=== PATIENT | male | born 2000 | race Caucasian/White ===

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

== ENCOUNTER 2021-03-15 12:09 | Emergency (ER) | payer OTHER, SELFPAY ==
[2021-03-15] VITALS (19 sets, daily range): BP systolic 97–135; BP diastolic 53–93; PULSE 59–79; RESP 8–22; TEMP 36.7; O2SAT 96–100
--- NOTE | 2021-03-15 12:30 | DI.CT_ITS ---
Exam(s) CT CERVICAL SPINE WO EXAM: CT CERVICAL SPINE WO CLINICAL HISTORY: trauma. TECHNIQUE: CT Examination of the cervical spine was performed utilizing multislice acquisition and m ultiplanar reconstruction. COMPARISON: No exams were available for comparison FINDINGS: The visualized lung apices are clear. The tracholaryngeal structures appear intact. No cervical mass or adenopathy seen. Intervertebral disc spaces are well maintained. No gross cervical disc herniation by CT criteria. Facet joints are normal. No bony abnormality seen. IMPRESSION: Normal cervical spine CT RADIATION DOSE DELIVERED: 770.79mGy.cm Total DLP 770.79mGy.cm Total DLP 29.3mGy CTDIvol DATA REPOSITORY: All CT scans at this facility are submitted to the National Radiology Data Registry (NRDR) Dose Index Registry (DIR) with the [employer] (ACR). RADIATION OPTIMIZATION: All CT scans at this facility use at least one of these dose optimization te chniques: automated exposure control; mA and/or kV adjustment per patient size (includes targeted exa ms where dose is matched to clinical indication); or iterative reconstruction.
--- NOTE | 2021-03-15 12:50 | ED.GENADUL_ITS ---
Discharge Plan Disposition Patient Disposition: HOME Condition: Stable Discharge Details Clinical Impression: Rib pain on right side, Fall from ladder Primary Care Provider: Tommy Quintanilla ED Provider: Venus Boyer Home Meds and New Rx's Prescriptions: No Action No Known Home Meds RF: 0 Discharge Instructions Instructions: Contusion in Adults (ED), Chest Wall Pain (ED), Rib Contusion (ED) Additional Instructions: Please return immediately to the emergency department if you develop any new or worsening symptoms, if your condition does not improve as expected, or if you become otherwise concerned. It is extremely important that you call soon as possible to make an appointment to be seen in follow-up for this visit by your primary care doctor. Referrals: Tommy Quintanilla DO [Primary Care Provider] - Discharge Data Discharge Date/Time-TO BE ENTERED AT DEPARTURE: 03/15/21 14:56 Medical Decision Making Evens Lewis is a 21-year-old man with history of attention deficit disorder who presented to the emergency department with right shoulder pain, right lateral rib pain, right abdominal pain after 10 foot fall from ladder. Did not hit his head. On exam patient is well and nontoxic-appearing although appears somewhat uncomfortable. There is tenderness palpation of the right lateral chest and right lateral abdomen, there are no skin signs of trauma any.. Right shoulder is nontender to palpation. Full range of motion bilateral upper and lower extremities. Mild tenderness to palpation of the thoracic and lumbar spine. Given mechanism of injury, concern for major trauma to the thorax, abdomen, spine. At this time there does not appear to be significant extremity trauma. Exam/history not consistent with acute emergent intracranial trauma. Plan for IV placement, telemetry, screening labs, CT cervical spine, CT chest abdomen/pelvis, CT thoracic/lumbar spine. Will monitor and reassess. Labs reviewed, hemoglobin 15. Imaging resulted as normal per radiology, patient reassessed. He reports that he has developed worsening right lateral rib pain, reports that right shoulder pain has resolved completely. Right shoulder NTTP, FROM. He denies any other pain at this time other than right lateral rib pain. C-collar cleared clinically. Okay for discharge home. I had a lengthy discussion with Patient regarding return to emergency department precautions, home care, and importance of outpatient follow-up. Pt verbalizes understanding of the plan and is amenable. Patient discharged to home with clear plan for outpatient follow-up. All questions were answered. Disposition decision was made weighing the risks and benefits of hospitalization versus outpatient treatment, the risk for further decompensation, and the patient's wishes. Medical Records Medical records reviewed: Yes I reviewed the patient's medical records. Imaging Data Radiologic Study: Attestation: I personally reviewed and interpreted this imaging study as follows: Radiologist's impression: EXAM: CT CERVICAL SPINE WO CLINICAL HISTORY: trauma. TECHNIQUE: CT Examination of the cervical spine was performed utilizing multislice acquisition and multiplanar reconstruction. COMPARISON: No exams were available for comparison FINDINGS: The visualized lung apices are clear. The tracholaryngeal structures appear intact. No cervical mass or adenopathy seen. Intervertebral disc spaces are well maintained. No gross cervical disc herniation by CT criteria. Facet joints are normal. No bony abnormality seen. IMPRESSION: Normal cervical spine CT EXAM: CT CHEST/ABD/PEL W TECHNIQUE: CT examination of the chest, abdomen, and pelvis was performed with bolus infusion of 100 cc of Omnipaque 350. COMPARISON: CT CT ABDOMEN PELVIS W from 03/03/2020 FINDINGS: There is no evidence of a thoracic vascular injury. The lungs are clear. No pneumothorax or pleural effusion. No mediastinal hematoma. No adenopathy in the chest. Tracheobronchial tree appears intact. The liver, spleen, and pancreas appear normal. Gallbladder and bile ducts are normal. Adrenals and kidneys are unremarkable. No evidence of urinary tract injury or obstruction. No abdominal or pelvic vascular injury seen. No abdominal or pelvic adenopathy. No significant abdominal wall hernia or hematoma. No evidence of bowel injury. No fracture identified in the region surveyed. Additional CT reconstructions of the thoracic and lumbar spine were also performed, no evidence of a fracture of the thoracic or lumbar spine. IMPRESSION: No evidence of acute injury of the chest, abdomen, or pelvis. EXAM: CT CHEST/ABD/PEL W TECHNIQUE: CT examination of the chest, abdomen, and pelvis was performed with bolus infusion of 100 cc of Omnipaque 350. COMPARISON: CT CT ABDOMEN PELVIS W from 03/03/2020 FINDINGS: There is no evidence of a thoracic vascular injury. The lungs are clear. No pneumothorax or pleural effusion. No mediastinal hematoma. No adenopathy in the chest. Tracheobronchial tree appears intact. The liver, spleen, and pancreas appear normal. Gallbladder and bile ducts are normal. Adrenals and kidneys are unremarkable. No evidence of urinary tract injury or obstruction. No abdominal or pelvic vascular injury seen. No abdominal or pelvic adenopathy. No significant abdominal wall hernia or hematoma. No evidence of bowel injury. No fracture identified in the region surveyed. Additional CT reconstructions of the thoracic and lumbar spine were also p erformed, no evidence of a fracture of the thoracic or lumbar spine. IMPRESSION: No evidence of acute injury of the chest, abdomen, or pelvis. Lab Data Lab results reviewed: Yes I reviewed the patient's lab results. Labs: Laboratory Tests Range/Units 03/15/21 03/15/21 03/15/21 12:56 12:56 13:49 WBC (4.4-10.8) 10^3/uL 10.87 H RBC (4.36-5.78) 10^6/uL 5.38 Hgb (13.5-17.5) g/dL 15.0 Hct (40.0-50.0) % 44.5 MCV (80-95) fL 82.7 MCH (27.0-33.0) pg 27.9 MCHC (32.0-36.0) % 33.7 RDW (11.8-14.1) % 12.0 Plt Count (130-400) 10^3/uL 294 MPV (8.0-11.0) fL 9.0 Immature Gran % 0.3 Neutrophils % 80.4 Lymphocytes % 12.8 Monocytes % 4.4 Eosinophils % 1.6 Basophils % 0.5 Nucleated RBC % % 0 Absolute Neutrophils (1.2-6.7) 10^3/uL 8.74 H Absolute Lymphocytes (1.2-3.4) 10^3/uL 1.39 Absolute Monocytes (0.1-0.8) 10^3/uL 0.48 Absolute Eosinophils (0.0-0.7) 10^3/uL 0.17 Absolute Basophils (0.0-0.2) 10^3/uL 0.05 PT (9.3-11.0) sec 10.4 INR (0.9-1.1) 1.0 Sodium (136-145) mmol/L 138 Potassium (3.5-5.1) mmol/L 4.0 Chloride (98-107) mmol/L 102 Carbon Dioxide (21.0-32.0) mmol/L 29.5 Anion Gap (3-11) mmol/L 6.5 BUN (7-18) mg/dL 17 Creatinine (0.70-1.30) mg/dL 1.1 Estimated GFR/1.73 m2 (mL/min/1.73m2) >= 60.00 Glucose (74-106) mg/dL 95 Calcium (8.5-10.1) mg/dL 9.4 Total Bilirubin (0.2-1.0) mg/dL 0.6 AST (15-37) U/L 17 ALT (16-63) U/L 48 Alkaline Phosphatase (46-116) U/L 71 Total Protein (6.4-8.2) g/dL 8.0 Albumin (3.4-5.0) g/dL 4.8 Patient ABO/Rh Antibody Screen Range/Units 03/15/21 13:49 WBC (4.4-10.8) 10^3/uL RBC (4.36-5.78) 10^6/uL Hgb (13.5-17.5) g/dL Hct (40.0-50.0) % MCV (80-95) fL MCH (27.0-33.0) pg MCHC (32.0-36.0) % RDW (11.8-14.1) % Plt Count (130-400) 10^3/uL MPV (8.0-11.0) fL Immature Gran % Neutrophils % Lymphocytes % Monocytes % Eosinophils % Basophils % Nucleated RBC % % Absolute Neutrophils (1.2-6.7) 10^3/uL Absolute Lymphocytes (1.2-3.4) 10^3/uL Absolute Monocytes (0.1-0.8) 10^3/uL Absolute Eosinophils (0.0-0.7) 10^3/uL Absolute Basophils (0.0-0.2) 10^3/uL PT (9.3-11.0) sec INR (0.9-1.1) Sodium (136-145) mmol/L Potassium (3.5-5.1) mmol/L Chloride (98-107) mmol/L Carbon Dioxide (21.0-32.0) mmol/L Anion Gap (3-11) mmol/L BUN (7-18) mg/dL Creatinine (0.70-1.30) mg/dL Estimated GFR/1.73 m2 (mL/min/1.73m2) Glucose (74-106) mg/dL Calcium (8.5-10.1) mg/dL Total Bilirubin (0.2-1.0) mg/dL AST (15-37) U/L ALT (16-63) U/L Alkaline Phosphatase (46-116) U/L Total Protein (6.4-8.2) g/dL Albumin (3.4-5.0) g/dL Patient ABO/Rh AB Negative Antibody Screen NEGATIVE HPI General Mode of arrival: ambulatory . Date/Time Provider Initiated Documentation: 03/15/21 12:37 . Limitations to Documentation: no limitations . Information obtained by: patient, RN notes reviewed and old records reviewed . HPI Narrative: Evens Lewis is a 21-year-old man with a history of attention deficit disorder presenting to emergency department with right-sided trunk pain after fall from ladder. Patient reports that just prior to arrival he was approximately 10 feet up on a ladder when the ladder began to fall to the side. Patient was able to brace himself against the wall behind him and slid down the wall against his back for some distance but then fell quite hard on the floor landing on his right side. Patient reports that he did not hit his head, remembers the entire incident, no vomiting or loss of consciousness. Patient reporting pain in his right lateral chest near his armpit. Was walking after the fall though did have pain in the right side of his trunk. He reports some right shoulder pain, denies any other extremity pain. Does not take blood thinners. Related Data Home Medications Medication Instructions Recorded Confirmed Unknown [No Known Home Meds] 03/15/21 03/15/21 Allergies Allergy/AdvReac Type Severity Reaction Status Date / Time soy Allergy Intermediate itching, Verified 03/15/21 12:30 skin rash dairy Allergy Intermediate Itching, Uncoded 03/15/21 12:30 skin rash General Stated Complaint: Trauma PREMA: 2 Review of Systems Narrative: Constitutional: denies fevers Eyes: denies eye pain ENT: denies ear pain, dental pain, sore throat Cardiovascular: reports right lateral chest pain Respiratory: denies SOB, cough GI: denies vomiting, diarrhea, reports right lateral abdominal pain : denies flank pain MSK: reports right shoulder pain, denies back pain, neck pain, other arthralgias Skin: denies rash Neuro: denies headaches, numbness, weakness PFSH Medical History ADD (attention deficit disorder) Anxiety anxious most of the time with some vomting and fear of eating- wt loss will increase sertaline which he is on for depression 05/17/19 Asperger syndrome diagnosed in 2nd grade - socially awkward Concussion, unspecified (02/01/12) Shoulder pain SLAP lesion of right shoulder Wheezing hospitalized once brief time Surgical History Adenoidectomy Previous back surgery Repair of umbilical hernia Family History Mother Essential hypertension Hyperlipidemia Mental disorder depression/anxiety Father Essential hypertension Other Factor XI deficiency, type I MGM SIDS (sudden syndrome) mat uncle Alcohol abuse maternal Essential hypertension MGF Bipolar disorder materanal side Mental disorder anxiety/depression on paternal side and also with older brother Sister Mental disorder depression/anxiety Asthma Brother Anxiety Social History Smoking/Tobacco Use Status: Former Tobacco Use Quit Date: 06/05/18 Second Hand Exposure: No Smoking risk assessment performed?: Yes Alcohol Intake: current Alcohol Intake frequency: a few times a month Drug use: Never Substance use type: does not use Adopted: No Caregiver/Support person: No Foster care: No Household members: family Housing: house Number of Children: 0 Education Level: college Details: Freshman (Fall 2019) at [employer] Do you need help understanding health information?: Rarely Pets and animals: Yes Pets and animals: dog(s) Sexually active: Yes Do you think of yourself as: straight/heterosexual Current gender identity: male What type of physical activity do you participate in: regular exercise Duration: 45-60 minutes/day Frequency: 3-4 times per week Seatbelt use: always Helmet use: Yes Water heater temp set <120 deg: Yes Working smoke detector in home: Yes Fire extinguisher in home: Yes Carbon monox detector in home: Yes Do you feel safe at home: Yes Do you feel safe in your relationship?: Yes Additional Social history: Not all childhood immunizations are up to date Exam Narrative Exam Narrative: Constitutional: [id number], conversing normally HENT: head atraumatic/normocephalic/normal inspection, mucous membranes moist Eyes: conjunctiva normal, sclera normal, pupils 3mm b/l Neck: no stridor, trachea midline, c-collar in place Chest: normal inspection, TTP right lateral ribs, no crepitus Resp: normal work of breathing, speaking in full sentences Cardio: normal rate, normal rhythm GI: abdomen soft, non-tender, non-distended Back: normal inspection, no rash, diffuse mild TTP of lumbar and thoracic spine Skin: warm, dry, normal color, no rash Neuro: alert, not altered, grossly non-focal, normal tone Ext: no edema, ranging b/l UEs and LEs normally, no TTP right shoulder, radial pulses intact and symmetric Psych: normal mood, normal affect, normal behavior Course Vital Signs Vital signs: Vital Signs Temperature 36.7 C 03/15/21 12:27 Pulse 72 03/15/21 12:27 Respiratory Rate 18 03/15/21 12:27 Blood Pressure 135/71 03/15/21 12:27 Pulse Oximetry 98 03/15/21 12:27 Temperature 36.7 C 03/15/21 12:27 Pulse 72 03/15/21 12:27 Respiratory Rate 18 03/15/21 12:27 Respiratory Effort Non-Labored 03/15/21 12:43 Respiratory Depth Normal 03/15/21 12:43 Respiratory Pattern Normal 03/15/21 12:43 Blood Pressure 135/71 03/15/21 12:27 Pulse Oximetry 98 03/15/21 12:27 Oxygen Delivery Method Room Air 03/15/21 12:27 Oxygen Flow Rate 0 03/15/21 12:27
[2021-03-15] MEDS: Omnipaque 350 MG/ML 100 ML BTL IJ (13:17)
[2021-03-15] MEDS: Normal Saline - Diluent 50 ML VIAL IV (13:23)
[2021-03-15 13:30] LABS: ALT 48 U/L (16-63); AST 17 U/L (15-37); Albumin 4.8 g/dL (3.4-5.0); Alkaline Phosphatase 71 U/L (46-116); Anion Gap 6.5 mmol/L (3-11); BUN 17 mg/dL (7-18); Bilirubin, Total 0.6 mg/dL (0.2-1.0); CO2 29.5 mmol/L (21.0-32.0); CREATININE 1.1 mg/dL (0.70-1.30); Calcium 9.4 mg/dL (8.5-10.1); Chloride 102 mmol/L (98-107); Glucose 95 mg/dL (74-106); Sodium 138 mmol/L (136-145)
[2021-03-15 13:31] LABS: Prothrombin Time 10.4 sec (9.3-11.0)
--- NOTE | 2021-03-15 13:45 | DI.CT_ITS ---
Exam(s) CT CHEST/ABD/PEL W CT THORACIC LUMBAR SPINE REC EXAM: CT CHEST/ABD/PEL W TECHNIQUE: CT examination of the chest, abdomen, and pelvis was performed with bolus infusion of 100 cc of Omnipaque 350. COMPARISON: CT CT ABDOMEN PELVIS W from 03/03/2020 FINDINGS: There is no evidence of a thoracic vascular injury. The lungs are clear. No pneumothorax or pleural effusion. No mediastinal hematoma. No adenopathy in the chest. Tracheobronchial tree appears intact. The liver, spleen, and pancreas appear normal. Gallbladder and bile ducts are normal. Adrenals and kidneys are unremarkable. No evidence of urinary tract injury or obstruction. No abdominal or pelvic vascular injury seen. No abdominal or pelvic adenopathy. No significant abdomi nal wall hernia or hematoma. No evidence of bowel injury. No fracture identified in the region surveyed. Additional CT reconstructions of the thoracic and lumbar spine were also performed, no evidence of a fracture of the thoracic or lumbar spine. IMPRESSION: No evidence of acute injury of the chest, abdomen, or pelvis. RADIATION DOSE DELIVERED: Total DLP Total DLP Total DLP CTDIvol DATA REPOSITORY: All CT scans at this facility are submitted to the National Radiology Data Registry (NRDR) Dose Index Registry (DIR) with the [employer] (ACR). RADIATION OPTIMIZATION: All CT scans at this facility use at least one of these dose optimization te chniques: automated exposure control; mA and/or kV adjustment per patient size (includes targeted exa ms where dose is matched to clinical indication); or iterative reconstruction.
[2021-03-15 13:57] LABS: Abs Immature Grans 0.03 10^3/uL (0.0-0.06); Absolute Basophil Count 0.05 10^3/uL (0.0-0.2); Absolute Eosinophil Count 0.17 10^3/uL (0.0-0.7); Absolute Lymphocyte Count 1.39 10^3/uL (1.2-3.4); Absolute Monocyte Count 0.48 10^3/uL (0.1-0.8); Absolute Neutrophil Count 8.74 10^3/uL (1.2-6.7); Basophils % 0.5; Eosinophils % 1.6; HCT 44.5 % (40.0-50.0); Immature Grans % 0.3; Lymphocytes % 12.8; MCH 27.9 pg (27.0-33.0); MCHC 33.7 % (32.0-36.0); MCV 82.7 fL (80-95); Monocytes % 4.4; Neutrophils % 80.4; Nucleated RBC 0 %; Platelet Count 294 10^3/uL (130-400); RBC 5.38 10^6/uL (4.36-5.78); RDW-SD 35.9 fL; WBC 10.87 10^3/uL (4.4-10.8)
== END 2021-03-15 14:56 | disposition home or self-care (01) ==
PROVIDERS: Emergency Provider Student in an Organized Health Care Education/Training Program; PCP Family Medicine
DX: R07.81 Pleurodynia (principal); S39.82XA Other specified injuries of lower back, initial encounter; M25.511 Pain in right shoulder; R10.9 Unspecified abdominal pain; R07.89 Other chest pain; W11.XXXA Fall on and from ladder, initial encounter
CPT/HCPCS: 36415; 74177; 80053; 86850; 86900; 86901; 99285; 71260; 72125; 85025; 85610; 99284; J3490

== ENCOUNTER → 2022-01-19 12:54 | Outpatient (CLI) | payer OTHER, SELFPAY ==
--- NOTE | 2022-01-19 11:15 | DI.RAD_ITS ---
Exam(s) XR ANKLE RT COMPLETE EXAM: XR ANKLE RT COMPLETE CLINICAL HISTORY: ACTE PAIN IN ANKLE AND JOINTS--M25.579 TECHNIQUE: COMPARISON: No exams were available for comparison FINDINGS: Three views were obtained. The ankle mortise is well maintained. No bony or soft tissue abnormality seen. IMPRESSION: RADIATION DOSE DELIVERED: Total DLP
== END ==
PROVIDERS: PCP Family Medicine; Visit Provider Nurse Practitioner
DX: M25.571 Pain in right ankle and joints of right foot (principal)
CPT/HCPCS: 73610

== ENCOUNTER 2022-11-21 11:33 | Outpatient (CLI) | payer OTHER, SELFPAY ==
--- NOTE | 2022-11-21 11:15 | DI.RAD_ITS ---
Exam(s) XR KNEE LT 3V AP,LAT,CLARISA EXAM: XR KNEE LT 3V AP,LAT,CLARISA CLINICAL HISTORY: Inversion injuries, franchesca knee pain, M25.561, M25.562. TECHNIQUE: 2D digital imaging was performed. Three views. COMPARISON: No exams were available for comparison FINDINGS: BONES: No acute fracture is present. No bony destructive lesion is seen. JOINTS: The knee is normally aligned. No joint effusion is seen. SOFT TISSUE: Normal. IMPRESSION: Normal radiographs of the left knee. DATA REPOSITORY: RADIATION DOSE DELIVERED:
--- NOTE | 2022-11-21 11:15 | DI.RAD_ITS ---
Exam(s) XR KNEE RT 3V AP,LAT,CLARISA EXAM: XR KNEE RT 3V AP,LAT,CLARISA CLINICAL HISTORY: Inversion injury, franchesca knee pain, M25.561, M25.562. TECHNIQUE: 2D digital imaging was performed. Three views. COMPARISON: No exams were available for comparison FINDINGS: BONES: No acute fracture is present. No bony destructive lesion is seen. JOINTS: The knee is normally aligned. No joint effusion is seen. SOFT TISSUE: Normal. IMPRESSION: Unremarkable radiographs of the right knee. DATA REPOSITORY: RADIATION DOSE DELIVERED:
== END 2022-11-21 11:53 ==
LOC: DI 11:34
PROVIDERS: PCP Family Medicine; Visit Provider Family Medicine
DX: M25.561 Pain in right knee (principal); M25.562 Pain in left knee
CPT/HCPCS: 73562

== ENCOUNTER 2022-11-22 08:19 | Outpatient (CLI) | payer OTHER, SELFPAY ==
--- NOTE | 2022-11-22 08:13 | DI.RAD_ITS ---
Exam(s) XR KNEES MERCHANT ONLY EXAM: XR KNEES MERCHANT ONLY INDICATION: L KNEE PAIN. COMPARISON: No exams were available for comparison TECHNIQUE: 2D digital imaging was performed. One image was obtained. Merchant's view of both knees were performed. FINDINGS: There is normal alignment of the patella. The bones are normally mineralized. The soft tissues are unremarkable. IMPRESSION: This is a limited examination. No acute abnormality. DATA REPOSITORY: RADIATION DOSE DELIVERED:
== END 2022-11-22 08:20 | disposition home or self-care (01) ==
LOC: DIORS 08:20
PROVIDERS: PCP Family Medicine; Referring Provider Family Medicine; Visit Provider Physician Assistant
DX: M25.562 Pain in left knee (principal)
CPT/HCPCS: 73565

== ENCOUNTER 2022-12-12 00:37 | Outpatient (CLI) | payer OTHER, SELFPAY ==
--- NOTE | 2022-12-12 08:20 | DI.MRI_ITS ---
Exam(s) MR LOWER JOINT LT WO EXAM: MR LOWER JOINT LT WO CLINICAL HISTORY: L KNEE INJURY, ? MENISCUS tear, lt knee pain, m25.562 TECHNIQUE: Multiplanar multisequence MRI of the knee was performed. COMPARISON: CR XR KNEE RT 3V AP,LAT,CLARISA from 11/21/2022 CR XR KNEE LT 3V AP,LAT,CLARISA from 11/21/2022 CR XR KNEES MERCHANT ONLY from 11/22/2022 FINDINGS: EFFUSION: There is no evidence of prominent knee joint effusion. There is a tiny sub cm size Beatty c yst in the medial popliteal fossa. MARROW:There is no evidence of fracture, bone contusion, nor osteochondral defects.. There are no si gnificant osseous lesions. PATELLOFEMORAL COMPARTMENT: The quadriceps tendon is intact. The patellar ligament is intact. There is no significant thinning of the retropatellar cartilage. No evidence of fissure nor signific ant chondral defect. No osteochondral defect at this level.There is no intraosseous signal to sugges t recent patellar dislocation. There are no patellar retinacular tears. CRUCIATE LIGAMENTS: The anterior cruciate ligament is intact.The posterior cruciate ligament is intac t. MEDIAL COMPARTMENT/MEDIAL MENISCUS: There are no tears of the medial meniscus evident.. There are no chondral defects, osteochondral defects, subarticular marrow edema, nor osteophytes evid ent. MEDIAL COLLATERAL LIGAMENT: Intact LATERAL COMPARTMENT/LATERAL MENISCUS: There is no evidence of lateral meniscal tear.There are no víctor dral defects, osteochondral defects, subarticular marrow edema, nor osteophytes evident. ILIOTIBIAL BAND: Intact LATERAL COLLATERAL LIGAMENT COMPLEX: The fibular collateral ligament is intact. The biceps femoris t endon is intact.Popliteus muscle and tendon are intact. IMPRESSION: 1. No evidence of significant internal derangement in the left knee. There are no meniscal tears. N o cruciate ligament nor collateral ligament tears evident 2. No osteochondral defects nor prominent cartilage loss in the medial lateral compartments nor in th e retropatellar compartment. 3. No prominent joint effusion evident. DATA REPOSITORY:
== END 2022-12-12 00:57 ==
LOC: DI 00:38
PROVIDERS: PCP Family Medicine; Visit Provider Student in an Organized Health Care Education/Training Program
DX: M25.561 Pain in right knee (principal); M25.562 Pain in left knee
CPT/HCPCS: 73721